=== PATIENT | male | born 1960 | race Caucasian/White ===

== ENCOUNTER 2020-03-21 14:42 | Emergency (ER) | payer OTHER, BC ==
--- NOTE | 2020-03-21 15:01 | ER Document Report ---
ED Medical Screen (RME) - General Chief Complaint: Syncope Stated Complaint: FALL,NECK SHOULDER PAIN Time Seen by Provider: 03/21/20 14:52 Primary Care Provider: KRISTYN URBINA PA [Primary Care Provider] - Follow up as needed Mode of Arrival: Medic Information source: Patient Notes: 59-year-old male presented to ED after he had a syncopal episode falling losing consciousness for 2 minutes. Patient states he does not remember falling at all. Bystanders state that he was standing following some files when he also only dropped to the floor losing consciousness. They state he did not seizure. He does have a history of high blood pressure and cholesterol. He does wear BiPAP at night. I have greeted and performed a rapid initial assessment of this patient. A comprehensive ED assessment and evaluation of the patient, analysis of test results and completion of medical decision making process will be conducted by an additional ED providers. TRAVEL OUTSIDE OF THE [place] IN LAST 30 DAYS: No - Related Data Allergies/Adverse Reactions: No Known Allergies Allergy (Unverified 03/21/20 14:50) Past Medical History - Past Medical History Cardiac Medical History: Reports: Hx Hypertension - medicated Endocrine Medical History: Reports: Hx Diabetes Mellitus Type 2 - metformin Past Surgical History: Reports: Hx Tonsillectomy Physical Exam - Vital signs Vitals: Temp Pulse Resp BP Pulse Ox 97.3 F 84 20 175/108 H 94 03/21/20 14:46 03/21/20 14:46 03/21/20 14:46 03/21/20 14:46 03/21/20 14:46 Course - Vital Signs Vital signs: Temp Pulse Resp BP Pulse Ox 97.3 F 84 20 175/108 H 94 03/21/20 14:46 03/21/20 14:46 03/21/20 14:46 03/21/20 14:46 03/21/20 14:46 Doctor's Discharge - Discharge Referrals: KRISTYN URBINA PA [Primary Care Provider] - Follow up as needed
[2020-03-21 15:54] LABS: ABSOLUTE EOSINOPHILS # (AUTO) 0.1 10^3/uL (0.0-0.6); ABSOLUTE LYMPHOCYTES (AUTO) 1.4 10^3/uL (0.5-4.7); ABSOLUTE MONOCYTES (AUTO) 0.6 10^3/uL (0.1-1.4); ABSOLUTE NEUT (AUTO) 6.6 10^3/uL (1.7-8.2); BASOPHILS % (AUTO) 0.5 % (0-2); EOSINOPHILS % (AUTO) 1.6 % (0-6); HEMATOCRIT 44.8 % (37.9-51.0); HEMOGLOBIN 15.6 g/dL (13.5-17.0); LYMPHOCYTES % (AUTO) 15.4 % (13-45); MEAN CORPUSCULAR HEMOGLOBIN 31.6 pg (27.0-33.4); MEAN CORPUSCULAR HGB CONC 34.8 g/dL (32.0-36.0); MEAN CORPUSCULAR VOLUME 91 fl (80-97); MONOCYTES % (AUTO) 7.1 % (3-13); PLATELET COUNT 311 10^3/uL (150-450); RED BLOOD COUNT 4.94 10^6/uL (4.35-5.55); RED CELL DISTRIBUTION WIDTH 14.6 % (11.5-14.0); SEGMENTED NEUTROPHILS % (AUTO) 75.4 % (42-78); TOTAL CELLS COUNTED % (AUTO) 100 %; WHITE BLOOD COUNT 8.8 10^3/uL (4.0-10.5)
[2020-03-21 15:56] LABS: APPEARANCE,URINE CLEAR; BILIRUBIN,URINE NEGATIVE (NEGATIVE); COLOR,URINE STRAW; GLUCOSE, URINE NEGATIVE (NEGATIVE); KETONES,URINE NEGATIVE (NEGATIVE); LEUKOCYTE ESTERASE,URINE NEGATIVE (NEGATIVE); NITRITE,URINE NEGATIVE (NEGATIVE); PROTEIN,URINE 30 mg/dL (NEGATIVE); URINE SPECIFIC GRAVITY 1.011; UROBILINOGEN,URINE NEGATIVE mg/dL (<2.0)
--- NOTE | 2020-03-21 16:06 | RADIOLOGY REPORT (SQ) ---
EXAM DESCRIPTION: SHOULDER LEFT 2 OR MORE VIEWS IMAGES COMPLETED DATE/TIME: 03/21/2020 3:40 pm REASON FOR STUDY: Syncope fall pain shoulder COMPARISON: None. NUMBER OF VIEWS: Three views. TECHNIQUE: Internal rotation, external rotation, and Y view images acquired of the left shoulder. LIMITATIONS: None. FINDINGS: MINERALIZATION: Normal. BONES: No acute fracture. No worrisome bone lesions. JOINTS: No dislocation. Moderate acromioclavicular arthropathy. VISUALIZED LUNGS AND RIBS: No pneumothorax. No rib fracture. SOFT TISSUES: No radiopaque foreign body. OTHER: No other significant finding. IMPRESSION: No evidence of acute osseous injury. TECHNICAL DOCUMENTATION: JOB ID: [id number] 2010 [employer]- All Rights Reserved Reading location - IP/workstation name: [email or web address]
[2020-03-21 16:07] LABS: ALBUMIN 4.1 g/dL (3.5-5.0); ALKALINE PHOSPHATASE 77 U/L (38-126); ANION GAP 7 (5-19); ASPARTATE AMINO TRANSFERASE 27 U/L (17-59); BILIRUBIN,DIRECT 0.2 mg/dL (0.0-0.4); BILIRUBIN,TOTAL 1.2 mg/dL (0.2-1.3); BLOOD UREA NITROGEN 18 mg/dL (7-20); CALCIUM 9.5 mg/dL (8.4-10.2); CARBON DIOXIDE 31 mmol/L (22-30); CHLORIDE 99 mmol/L (98-107); CREATINE KINASE 213 U/L (55-170); GLUCOSE 96 mg/dL (75-110); POTASSIUM 4.4 mmol/L (3.6-5.0); TOTAL PROTEIN 7.3 g/dL (6.3-8.2)
--- NOTE | 2020-03-21 16:10 | RADIOLOGY REPORT (SQ) ---
EXAM DESCRIPTION: CT CERVICAL SPINE WITHOUT IMAGES COMPLETED DATE/TIME: 03/21/2020 3:50 pm REASON FOR STUDY: Syncopal episode fall neck pain COMPARISON: None. TECHNIQUE: Axial images acquired through the cervical spine without intravenous contrast. Images re viewed with lung, soft tissue and bone windows. Reconstructed coronal and sagittal MPR images review ed. Images stored on PACS. All CT scanners at this facility use dose modulation, iterative reconstruction, and/or weight based d osing when appropriate to reduce radiation dose to as low as reasonably achievable (ALARA). [facility]: Dose Right [facility]: CareDose [facility]: Dose Right [facility]: Teradose 4D [facility]: [employer] LIMITATIONS: Habitus and motion artifact particularly limits evaluation of the lower segments. FINDINGS: ALIGNMENT: Anatomic. MINERALIZATION: Normal. VERTEBRAL BODIES: No fractures or dislocation. DISCS: Variable disc disease associated spurs. Disc space narrowing looks most pronounced at the cer vicothoracic junction. FACETS, LATERAL MASSES, POSTERIOR ELEMENTS: Facet arthropathy. Variable ankylosis, particularly at C 2-3. No posterior element fracture. VISUALIZED RIBS: No fractures. LUNG APICES AND SOFT TISSUES: No significant or acute findings. OTHER: No other significant finding. IMPRESSION: CHRONIC DEGENERATIVE CHANGES. NO ACUTE FINDINGS. COMMENT: Quality ID # [id number]: Final reports with documentation of one or more dose reduction techniques (e.g., Automated exposure control, adjustment of the mA and/or kV according to patient size, use of iterative reconstruction technique) TECHNICAL DOCUMENTATION: JOB ID: [id number] Reading location - IP/workstation name: [email or web address]
[2020-03-21 16:19] LABS: CREATINE KINASE MB 2.42 ng/mL (<4.55)
[2020-03-21 16:24] LABS: TROPONIN I < 0.012 ng/mL
[2020-03-21] MEDS ORDERED: IBUPROFEN 800 MG TABLET PO ONE (17:45)
--- NOTE | 2020-03-22 00:01 | ER Document Report ---
ED General - General Chief Complaint: Syncope Stated Complaint: FALL,NECK SHOULDER PAIN Time Seen by Provider: 03/21/20 14:52 Primary Care Provider: KRISTYN URBINA PA [Primary Care Provider] - Follow up as needed Mode of Arrival: Medic TRAVEL OUTSIDE OF THE [place] IN LAST 30 DAYS: No - HPI Notes: 59-year-old male presents following syncopal event that happened at work this afternoon. Patient states that he did not feel well this afternoon, he was rubbing his eyes a lot. States that he felt a sensation of his face getting hot. He was sitting at a desk when it occurred. States that he got up to go put a paper in a binder, he has syncopal event and fell to the floor. This was witnessed by a coworker, coworker told him that he was unconscious for 1 to 2 minutes. No seizure-like activity occurred. Patient states the next thing he knew was that he woke up with several people standing over him. He states that last week he had a similar episode where he felt hot and sweaty, he saw black spots, he sat down in a cool room and did not have a syncopal event. States that he has been sweating a lot while at work, he is having to wear mask/hat/fac e shield, feels dehydrated. He denied any preceding chest pain or shortness of breath. States that wearing a mask will make him feel short winded, he takes the mask away from his face and the sensation immediately improves. He denies a history of heart failure. He currently complains of left shoulder pain and pain to his right lower back, feels like a muscle spasm, better now that he is in the bed, worse when he was getting up and walking in the lobby. - Related Data Allergies/Adverse Reactions: No Known Allergies Allergy (Unverified 03/21/20 14:50) Home Medications: amlodipine,benazapri,atorvastatin,alpralozam, vit d, asa, Past Medical History - General Information source: Patient - Social History Smoking Status: Never Smoker Chew tobacco use (# tins/day): No Frequency of alcohol use: Rare Drug Abuse: None Family History: Reviewed & Not Pertinent Patient has homicidal ideation: No - Past Medical History Cardiac Medical History: Reports: Hx Hypertension - medicated Endocrine Medical History: Reports: Hx Diabetes Mellitus Type 2 - metformin Past Surgical History: Reports: Hx Tonsillectomy Review of Systems - Review of Systems Constitutional: denies: Fever EENT: denies: Blurred vision Cardiovascular: denies: Chest pain, Edema Respiratory: denies: Short of breath Gastrointestinal: denies: Abdominal pain Genitourinary: No symptoms reported Musculoskeletal: Back pain, Joint pain Skin: No symptoms reported Neurological/Psychological: denies: Headaches Physical Exam - Vital signs Vitals: Temp Pulse Resp BP Pulse Ox 97.3 F 84 20 175/108 H 94 03/21/20 14:46 03/21/20 14:46 03/21/20 14:46 03/21/20 14:46 03/21/20 14:46 - General General appearance: Appears well, Alert In distress: None - HEENT Head: Normocephalic, Atraumatic Extraocular movements intact: Yes Pupils: PERRL Mouth/Lips: Normal Neck: Other - No midline tenderness - Respiratory Breath sounds: Normal - Cardiovascular Rhythm: Regular Heart sounds: Normal auscultation - Abdominal Inspection: Obese Tenderness: Nontender - Extremities General upper extremity: Normal inspection General lower extremity: Normal ROM. No: Edema - Neurological Neuro grossly intact: Yes Cognition: Normal Orientation: AAOx4 Speech: Normal Cranial nerves: Normal Motor strength normal: LUE, RUE, LLE, RLE Sensory: Normal - Psychological Associated symptoms: Normal affect - Skin Skin Temperature: Warm Course - Re-evaluation Re-evalutation: 59-year-old male presents following syncopal event while at work, witnessed by coworkers. Occurred when going from sitting to standing, patient reported preceding symptoms. He currently denies complaints. He is well-appearing, vital signs are stable, lungs are clear and heart regular rate and rhythm, he has no gross neuro deficits. He has no midline spinal tenderness. Suspect vasovagal syncope based on his presentation today. No history of heart failure. Will give fluids and Robaxin for reported muscle spasm, reassess. 03/22/20 01:53 No leukocytosis or left shift. No acute anemia. HCT is greater than 30%. Electrolytes are okay. Creatinine is within normal limits. Troponin was negative. Urine not suggestive of UTI. No documented arrhythmia while patient has been on monitor 03/22/20 01:56 Patient continues to be well-appearing and without complaints. He feels comfortable going home. I discussed with him need to have close follow-up with his primary care doctor. He was given strict return precautions. He stable at time of discharge. - Vital Signs Vital signs: Temp Pulse Resp BP Pulse Ox 98.2 F 72 17 136/78 H 95 03/21/20 21:39 03/21/20 21:39 03/21/20 21:39 03/21/20 21:39 03/21/20 21:39 - Laboratory Result Diagrams: 03/21/20 15:25 03/21/20 15:25 Laboratory results interpreted by me: 03/21/20 03/21/20 03/21/20 15:25 15:25 15:25 RDW 14.6 H Sodium 136.9 L Carbon Dioxide 31 H Creatine Kinase 213 H Urine Protein 30 H - Diagnostic Test Radiology reviewed: Image reviewed, Reports reviewed - EKG Interpretation by Me Additional EKG results interpreted by me: EKG is interpreted by me. Normal sinus rhythm, rate 86. QTc within normal limit. No ST segment elevation. Small Q waves present in multiple leads. No Q waves in V1 through 3. No EKG available for comparison. Discharge - Discharge Clinical Impression: Syncope Qualifiers: Syncope type: unspecified Qualified Code(s): R55 - Syncope and collapse Condition: Stable Disposition: HOME, SELF-CARE Additional Instructions: Please contact your primary care doctor and schedule an appointment for soon as possible. Continue all medications as prescribed. Please return to the emergency department for any concerning worsening symptoms. Referrals: KRISTYN URBINA PA [Primary Care Provider] - Follow up as needed
[2020-03-22] MEDS ORDERED: RINGERS SOLUTION,LACTATED 1,000 ML IV ONE (00:17)
[2020-03-22] MEDS ORDERED: METHOCARBAMOL 500 MG TABLET PO ONE (00:17)
[2020-03-22 02:20] VITALS: BP 161/95
--- NOTE | 2020-03-22 08:35 | EKG REPORT ---
SEVERITY:- ABNORMAL ECG - SINUS RHYTHM RIGHT AXIS DEVIATION : Confirmed by: Ania Vazquez MD 22-Mar-2020 08:34:31
== END 2020-03-22 02:39 | disposition home or self-care (01) ==
LOC: ER 14:42
DX: R55 Syncope and collapse (principal); M25.512 Pain in left shoulder; M54.5 Low back pain; W18.39XA Other fall on same level, initial encounter; Y99.0 Civilian activity done for income or pay; E11.9 Type 2 diabetes mellitus without complications; Z79.84 Long term (current) use of oral hypoglycemic drugs; I10 Essential (primary) hypertension
CPT/HCPCS: 93005; 99285; 96360; 36415; 82553; 82550; 85025; 80053; 81001; 84484; 73030; 72125; 93010; J7120